=== PATIENT | female | born 2000 ===

== ENCOUNTER 2024-12-07 22:32 | Emergency (ER) | payer SELFPAY ==
[~2024-12-07] VITALS: Ht 157.5 cm; Wt 90.7 kg
[2024-12-07] MEDS ORDERED: SODIUM CHLORIDE 0.9% 1000ML 1,000 ML IV SCH (23:15)
[2024-12-07 23:36] VITALS: TEMP 97.7
[2024-12-07 23:49] LABS: BASOPHILS % 1.0 % (0.0-1.0); EOSINOPHILS % 27.1 % (0.0-6.0); LYMPHOCYTES % 22.1 % (18.0-39.1); MONOCYTES % 8.4 % (4.4-11.3); NEUTROPHILS % 40.2 % (38.7-80.0); RED CELL DISTRIBUTION WIDTH 15.0 % (11.7-14.4)
[2024-12-08 00:06] LABS: EST GLOMERULAR FILTRATION RATE 108.0 ML/MIN (>=60)
[2024-12-08] MEDS: SODIUM CHLORIDE 0.9% 1000ML 1,000 ML IV STA (00:18)
[2024-12-08] MEDS: DEXAMETHASONE SOD PHOS 10 MG/1 ML VIAL IV ONE (00:18)
[2024-12-08 00:41] VITALS: PULSE 99; RESP 16
[2024-12-08 01:05] VITALS: BP 131/87; O2SAT 100
== END 2024-12-08 00:50 | disposition home or self-care (01) ==
LOC: ER 22:45
DX: R21 Rash and other nonspecific skin eruption (principal); L30.9 Dermatitis, unspecified
CPT/HCPCS: 36415; 80053; 84702; 85025; 99284; J1100; J7030